=== PATIENT | female | born 1995 | race Asian ===

== ENCOUNTER → 2021-02-14 | Outpatient (CLI) | payer OTHER | END | disposition home or self-care (01) | LOC: RADMN 12:23 | PROVIDERS: ATTEND Internal Medicine | DX: R76.11 Nonspecific reaction to tuberculin skin test without active tuberculosis (principal) | CPT/HCPCS: 71045 ==

== ENCOUNTER 2023-02-19 00:34 | Emergency (ER) | payer OTHER ==
[~2023-02-19] VITALS: Ht 167.6 cm; Wt 90.9 kg
[2023-02-19 00:43] VITALS: BP 165/105; PULSE 80; RESP 18; TEMP 98.4
[2023-02-19] MEDS ORDERED: IBUP-1492 PO (01:26)
== END 2023-02-19 01:34 | disposition home or self-care (01) ==
LOC: EMS 00:34
DX: M25.562 Pain in left knee (principal); Z88.2 Allergy status to sulfonamides
CPT/HCPCS: 99283